=== PATIENT | female | born 1940 | race Caucasian/White ===

== ENCOUNTER 2018-03-04 08:06 | Observation (INO) | payer MEDICARE, BC ==
[~2018-03-04] VITALS: Ht 157.5 cm; Wt 71.6 kg
[~2018-03-04 08:06] MED LIST: ACET325T14 PO; ASPI-496 PO; CARV3.1212 PO; FLUO10TA PO; FURO20TA3 PO; LEVO75TA5 PO; LOSA50TA7 PO; MECL25TA4 PO; OMEP-110 PO; ROSU40TA PO; SPIR25TA PO; TRAZ-136 PO
[2018-03-04] MEDS ORDERED: SODIUM CHLORIDE 0.9% 1,000 ML IV SCH (08:29)
[2018-03-04] MEDS ORDERED: CEFAZOLIN PMX 1GM/50ML 50 ML IVPB ONE (08:30)
[2018-03-04 08:41] VITALS: BP 156/71
[2018-03-04] MEDS ORDERED: PLEASE ENTER HEIGHT AND WEIGHT MC SCH (09:00)
[2018-03-04] MEDS ORDERED: PROPOFOL 50 ML ONE (10:30)
[2018-03-04] MEDS ORDERED: FENTANYL PF 100 MCG/2ML ONE (10:30)
[2018-03-04] MEDS ORDERED: LIDOCAINE 1%, 50ML ONE (10:48)
[2018-03-04] MEDS ORDERED: CEFAZOLIN 1,000 MG ONE ×2 (10:53→10:58)
[2018-03-04] MEDS ORDERED: DEXAMETHASONE 4 MG/ML, 1ML ONE (10:58)
[2018-03-04] MEDS ORDERED: ONDANSETRON 2MG/ML, 2ML ONE (10:58)
[2018-03-04] MEDS ORDERED: PROPOFOL 10 MG/ML, 20ML ONE (10:58)
[2018-03-04] MEDS ORDERED: ZOLPIDEM 5MG TABLET PO PRN (12:30)
[2018-03-04] MEDS ORDERED: ACETAMINOPHEN 325 MG TABLET PO PRN ×3 (12:30→13:00)
[2018-03-04] MEDS ORDERED: TRAZODONE 50MG TABLET PO PRN (12:30)
[2018-03-04] MEDS ORDERED: MECLIZINE CHEWABLE 25 MG TAB PO PRN (12:30)
[2018-03-04] MEDS ORDERED: [UNRECOGNIZED DRUG - REMARK] MC PRN (12:30)
[2018-03-04] MEDS ORDERED: DIPHENHYDRAMINE 50 MG/ML, 1ML IVPush PRN (13:00)
[2018-03-04] MEDS ORDERED: PROMETHAZINE 12.5 MG SUPP PR PRN (13:00)
[2018-03-04] MEDS ORDERED: MORPHINE SULFATE 4 MG/ML, 1ML IVPush PRN (13:00)
[2018-03-04] MEDS ORDERED: MIDAZOLAM 1 MG/ML, 2ML IV PRN (13:00)
[2018-03-04] MEDS ORDERED: PROMETHAZINE 25 MG/ML, 1ML IV PRN (13:00)
[2018-03-04] MEDS ORDERED: FENTANYL PF 100 MCG/2ML IV PRN (13:00)
[2018-03-04] MEDS ORDERED: METOPROLOL 1 MG/ML, 5ML IV PRN (13:00)
[2018-03-04] MEDS ORDERED: EPHEDRINE 50 MG/ML, 1ML IM PRN (13:00)
[2018-03-04] MEDS ORDERED: OXYcodone 5 MG/5 ML ORAL.SOL UDC PO PRN (13:00)
[2018-03-04] MEDS ORDERED: ONDANSETRON ODT 8 MG PO PRN (13:00)
[2018-03-04] MEDS ORDERED: EPHEDRINE 50 MG/ML, 1ML IVPush PRN (13:00)
[2018-03-04] MEDS ORDERED: PROMETHAZINE 25 MG SUPP PR PRN (13:00)
[2018-03-04] MEDS ORDERED: OXYcodone 5 MG/5 ML ORAL.SOL UDC ONE (13:10)
[2018-03-04] MEDS ORDERED: ACETAMINOPHEN 650 MG/20.3 ML UDC ONE (13:10)
[2018-03-04 14:05] VITALS: BP 107/68
[2018-03-04 20:05] VITALS: BP 112/65
[2018-03-04] MEDS ORDERED: (Rosuvastatin Calcium** (Crestor**) 40 MG) PO SCH (21:00)
[2018-03-04] MEDS: SODIUM CHLORIDE FLUSH 10ML SYR IVF SCH (21:00)
[2018-03-04] MEDS: CEFAZOLIN PMX 1GM/50ML 50 ML IVPB SCH (21:00)
[2018-03-04] MEDS: CARVEDILOL 6.25 MG TABLET PO SCH (21:01)
[2018-03-05 02:00] VITALS: BP 108/60
[2018-03-05] MEDS: CEFAZOLIN PMX 1GM/50ML 50 ML IVPB SCH (03:25)
[2018-03-05 07:52] VITALS: BP 133/66
[2018-03-05] MEDS: CARVEDILOL 6.25 MG TABLET PO SCH (08:45)
[2018-03-05] MEDS ORDERED: ASPIRIN 81 MG TABLET CHEW PO SCH (09:00)
[2018-03-05] MEDS ORDERED: OMEPRAZOLE 20 MG CAPSULE.DR PO SCH (09:00)
[2018-03-05] MEDS: SODIUM CHLORIDE FLUSH 10ML SYR IVF SCH (09:00)
[2018-03-05] MEDS ORDERED: FLUOXETINE HCL 20 MG CAPSULE PO SCH (09:00)
[2018-03-05] MEDS ORDERED: LEVOTHYROXINE 75 MCG TABLET PO SCH (09:00)
[2018-03-05] MEDS ORDERED: LOSARTAN 50MG TABLET PO SCH (09:00)
[2018-03-05] MEDS ORDERED: SPIRONOLACTONE 25 MG TABLET PO SCH (09:00)
== END 2018-03-05 12:15 | disposition home or self-care (01) ==
LOC: CACL 08:06 → ORIP 12:23 → 5SO 13:42 → DCLOUNGE 03-05 11:10
PROVIDERS: ADMIT Internal Medicine Cardiovascular Disease; ATTEND Internal Medicine Cardiovascular Disease
DX: T82.128A Displacement of other cardiac electronic device, initial encounter (principal); I42.9 Cardiomyopathy, unspecified; R94.31 Abnormal electrocardiogram [ECG] [EKG]; R53.83 Other fatigue; E03.9 Hypothyroidism, unspecified; Z95.810 Presence of automatic (implantable) cardiac defibrillator; Z79.899 Other long term (current) drug therapy
CPT/HCPCS: 33224; 33244; 71045; 96365; 96366; C1769; C1887; C1894; C1900; G0378; J0690; J1100; J2405; J2704; J3010; J3490; Q9967

== ENCOUNTER 2018-06-01 09:31 | Observation (INO) | payer MEDICARE, BC ==
[~2018-06-01] VITALS: Ht 157.5 cm; Wt 66.1 kg
[~2018-06-01 09:31] MED LIST changes: -TRAZ-136 PO; +TRAZ50TA66 PO
[2018-06-01] MEDS ORDERED: SODIUM CHLORIDE 0.9% 1,000 ML IV SCH (09:41)
[2018-06-01 09:54] VITALS: BP 135/65
[2018-06-01 10:09] LABS: BASOPHILS # (AUTO) 0.07 x10^3/uL (0-0.1); BASOPHILS % (AUTO) 1 % (0-1); EOSINOPHILS # (AUTO) 0.31 x10^3/uL (0-0.4); EOSINOPHILS % (AUTO) 4 % (1-7); LYMPHOCYTES # (AUTO) 2.12 x10^3/uL (1-3.4); LYMPHOCYTES % (AUTO) 27 % (22-44); MD NO; MEAN CORPUSCULAR HEMOGLOBIN 30.7 pg (27.0-34.8); MEAN CORPUSCULAR HGB CONC 33.6 g/dL (32.4-35.8); MEAN CORPUSCULAR VOLUME 91.4 fL (80-100); MEAN PLATELET VOLUME 9.8 fL (7.4-10.4); MONOCYTES # (AUTO) 0.48 x10^3/uL (0.2-0.8); MONOCYTES % (AUTO) 6 % (2-9); NEUTROPHILS # (AUTO) 4.95 x10^3/uL (1.8-6.8); NEUTROPHILS % (AUTO) 62 % (42-75); PLATELET COUNT 252 x10^3/uL (130-400); RED BLOOD COUNT 4.89 x10^6/uL (3.82-5.3); RED CELL DISTRIBUTION WIDTH 13.8 % (9.6-15.2)
[2018-06-01 10:14] LABS: ANION GAP 5 mmol/L (5-15); CALCIUM 9.4 mg/dL (8.5-10.1); CHLORIDE 110 mmol/L (98-107); CREATININE 1.11 mg/dL (0.55-1.02)
[2018-06-01 10:15] LABS: ALANINE AMINOTRANSFERASE 23 U/L (12-78); ALBUMIN 4.3 g/dL (3.4-5.0)
[2018-06-01 10:17] LABS: ALKALINE PHOSPHATASE 87 U/L (45-117); BILIRUBIN,TOTAL 0.6 mg/dL (0.2-1.0); TOTAL PROTEIN 7.6 g/dL (6.4-8.2)
[2018-06-01] MEDS ORDERED: FENTANYL PF 250 MCG/5ML ONE (11:46)
[2018-06-01] MEDS ORDERED: PROPOFOL 50 ML ONE (11:47)
[2018-06-01] MEDS ORDERED: LIDOCAINE 1%, 20ML ONE (11:51)
[2018-06-01] MEDS ORDERED: CEFAZOLIN 1,000 MG ONE (11:51)
[2018-06-01] MEDS ORDERED: DEXAMETHASONE 4 MG/ML, 1ML ONE (12:00)
[2018-06-01] MEDS ORDERED: ROCURONIUM 10 MG/ML,10ML ONE (12:00)
[2018-06-01] MEDS ORDERED: ONDANSETRON 2MG/ML, 2ML ONE (12:00)
[2018-06-01] MEDS ORDERED: SUCCINYLCHOLINE 20 MG/ML, 10ML ONE (12:00)
[2018-06-01] MEDS ORDERED: ONDANSETRON ODT 8 MG PO PRN (15:30)
[2018-06-01] MEDS ORDERED: OXYcodone 5 MG/5 ML ORAL.SOL UDC PO PRN (15:30)
[2018-06-01] MEDS ORDERED: PROMETHAZINE 25 MG/ML, 1ML IV PRN (15:30)
[2018-06-01] MEDS ORDERED: HOLD MEDICATION MC PRN (15:30)
[2018-06-01] MEDS ORDERED: PROMETHAZINE 25 MG SUPP PR PRN (15:30)
[2018-06-01] MEDS ORDERED: FENTANYL PF 100 MCG/2ML IV PRN (15:30)
[2018-06-01] MEDS ORDERED: ONDANSETRON 2MG/ML, 2ML IV PRN (15:30)
[2018-06-01] MEDS ORDERED: ACETAMINOPHEN 325 MG TABLET PO PRN (15:30)
[2018-06-01] MEDS ORDERED: MIDAZOLAM 1 MG/ML, 2ML IV PRN (15:30)
[2018-06-01] MEDS ORDERED: CEFAZOLIN PMX 1GM/50ML 50 ML IVPB SCH (15:30)
[2018-06-01] MEDS ORDERED: PROMETHAZINE 12.5 MG SUPP PR PRN (15:30)
[2018-06-01] MEDS ORDERED: MORPHINE SULFATE 4 MG/ML, 1ML IVPush PRN (15:30)
[2018-06-01] MEDS ORDERED: EPHEDRINE 50 MG/ML, 1ML IM PRN (15:30)
[2018-06-01] MEDS: HYDROcodone/APAP 5/325 TABLET PO PRN ×3 (16:35→21:28)
[2018-06-01] MEDS ORDERED: TRAZODONE 50MG TABLET PO PRN (17:30)
[2018-06-01] MEDS ORDERED: MECLIZINE 12.5 MG TABLET PO PRN (17:30)
[2018-06-01] MEDS: CARVEDILOL 6.25 MG TABLET PO SCH (18:35)
[2018-06-01] MEDS: CEFAZOLIN 1,000 MG in SODIUM CHLORIDE 0.9% 50 ML IVPB SCH (19:28)
[2018-06-01 19:35] VITALS: BP 96/58
[2018-06-01] MEDS ORDERED: ATORVASTATIN 80 MG TABLET PO SCH (21:00)
[2018-06-02 02:33] VITALS: BP 98/65
[2018-06-02] MEDS: HYDROcodone/APAP 5/325 TABLET PO PRN ×2 (02:43→08:38)
[2018-06-02] MEDS: CEFAZOLIN 1,000 MG in SODIUM CHLORIDE 0.9% 50 ML IVPB SCH (02:43)
[2018-06-02] MEDS ORDERED: LEVOTHYROXINE 75 MCG TABLET PO SCH ×2 (06:00→09:00)
[2018-06-02] MEDS ORDERED: ASPIRIN 81 MG TABLET EC PO SCH (06:00)
[2018-06-02] MEDS: CARVEDILOL 6.25 MG TABLET PO SCH (06:09)
[2018-06-02 08:40] VITALS: BP 115/72
[2018-06-02] MEDS ORDERED: HYDR-3240 PO (08:59)
[2018-06-02] MEDS ORDERED: SPIRONOLACTONE 25 MG TABLET PO SCH (09:00)
[2018-06-02] MEDS ORDERED: OMEPRAZOLE 20 MG CAPSULE.DR PO SCH (09:00)
[2018-06-02] MEDS ORDERED: LOSARTAN 50MG TABLET PO SCH (09:00)
[2018-06-02] MEDS ORDERED: FLUOXETINE HCL 20 MG CAPSULE PO SCH (09:00)
== END 2018-06-02 11:30 | disposition home or self-care (01) ==
LOC: CACL 09:31 → ORIP 15:15 → CACL 15:15 → 5SO 16:05 → DCLOUNGE 06-02 11:19
PROVIDERS: ADMIT Internal Medicine Cardiovascular Disease; ATTEND Internal Medicine Cardiovascular Disease
DX: T82.198A Other mechanical complication of other cardiac electronic device, initial encounter (principal); I49.5 Sick sinus syndrome; I42.9 Cardiomyopathy, unspecified; E03.9 Hypothyroidism, unspecified; L57.4 Cutis laxa senilis; R94.31 Abnormal electrocardiogram [ECG] [EKG]; R53.83 Other fatigue; Y99.8 Other external cause status; Z95.810 Presence of automatic (implantable) cardiac defibrillator
CPT/HCPCS: 33217; 33224; 33244; 36415; 71045; 71046; 80053; 85025; 96365; 96366; C1769; C1779; C1887; C1892; C1895; C1900; G0378; J0330; J0690; J1100; J2405; J2704; J3010; J3490; Q9967; 36005

== ENCOUNTER 2018-10-15 06:20 | Observation (INO) | payer MEDICARE, BC ==
[~2018-10-15] VITALS: Ht 157.5 cm; Wt 71.0 kg
[~2018-10-15 06:20] MED LIST changes: +HYDR-3240 PO; +LOSA50TA14 PO; -LOSA50TA7 PO
[2018-10-15] MEDS ORDERED: SODIUM CHLORIDE 0.9% 1,000 ML IV SCH (06:41)
[2018-10-15 06:56] VITALS: BP 136/65
[2018-10-15] MEDS ORDERED: SPIR25TA5 PO (07:23)
[2018-10-15] MEDS ORDERED: CEFAZOLIN 1,000 MG ONE ×2 (07:56→14:32)
[2018-10-15] MEDS ORDERED: PROPOFOL 50 ML ONE ×3 (08:12→10:33)
[2018-10-15] MEDS ORDERED: FENTANYL PF 250 MCG/5ML ONE (08:12)
[2018-10-15] MEDS ORDERED: MIDAZOLAM 1 MG/ML, 2ML ONE (08:44)
[2018-10-15] MEDS ORDERED: MORPHINE SULFATE 4 MG/ML, 1ML IVPush PRN (11:30)
[2018-10-15] MEDS ORDERED: DIAZEPAM 5 MG/ML, 2ML IVPush PRN (11:30)
[2018-10-15] MEDS ORDERED: FENTANYL PF 100 MCG/2ML IV PRN (11:30)
[2018-10-15] MEDS ORDERED: EPHEDRINE 50 MG/ML, 1ML IM PRN (11:30)
[2018-10-15] MEDS ORDERED: ACETAMINOPHEN 325 MG TABLET PO PRN (11:30)
[2018-10-15] MEDS ORDERED: ONDANSETRON 2MG/ML, 2ML IV PRN (11:30)
[2018-10-15] MEDS ORDERED: DIPHENHYDRAMINE 50 MG/ML, 1ML IVPush PRN (11:30)
[2018-10-15] MEDS ORDERED: ONDANSETRON ODT 8 MG PO PRN (11:30)
[2018-10-15] MEDS ORDERED: OXYcodone 5 MG/5 ML ORAL.SOL UDC PO PRN (11:30)
[2018-10-15] MEDS ORDERED: MIDAZOLAM 1 MG/ML, 2ML IV PRN (11:30)
[2018-10-15] MEDS ORDERED: MECLIZINE HCL 25 MG TABLET PO PRN (12:00)
[2018-10-15] MEDS ORDERED: TRAZODONE 50MG TABLET PO PRN (12:00)
[2018-10-15] MEDS ORDERED: OXYcodone 5 MG/5 ML ORAL.SOL UDC ONE (12:03)
[2018-10-15] MEDS ORDERED: FENTANYL PF 100 MCG/2ML ONE (12:04)
[2018-10-15 13:44] VITALS: BP 93/53
[2018-10-15] MEDS ORDERED: ONDANSETRON 2MG/ML, 2ML ONE (14:32)
[2018-10-15 14:33] VITALS: BP 106/52
[2018-10-15] MEDS: CETIRIZINE 10 MG TABLET PO SCH (16:17)
[2018-10-15] MEDS: CARVEDILOL 6.25 MG TABLET PO SCH (20:41)
[2018-10-15 20:53] VITALS: BP 120/69
[2018-10-15] MEDS ORDERED: ATORVASTATIN 80 MG TABLET PO SCH (21:00)
[2018-10-15] MEDS ORDERED: OXYcodone IR 5MG TABLET PO PRN (21:30)
[2018-10-16 01:30] VITALS: BP 129/65
[2018-10-16 07:54] VITALS: BP 110/66
[2018-10-16] MEDS ORDERED: OMEPRAZOLE 20 MG CAPSULE.DR PO SCH (09:00)
[2018-10-16] MEDS ORDERED: FLUOXETINE HCL 20 MG CAPSULE PO SCH (09:00)
[2018-10-16] MEDS ORDERED: LEVOTHYROXINE 75 MCG TABLET PO SCH (09:00)
[2018-10-16] MEDS ORDERED: LOSARTAN 25MG TABLET PO SCH (09:00)
[2018-10-16] MEDS ORDERED: SPIRONOLACTONE 25 MG TABLET PO SCH (09:00)
[2018-10-16] MEDS ORDERED: ASPIRIN 81 MG TABLET EC PO SCH (09:00)
[2018-10-16 09:30] VITALS: BP 104/61
[2018-10-16] MEDS: CETIRIZINE 10 MG TABLET PO SCH (09:35)
[2018-10-16] MEDS: CARVEDILOL 6.25 MG TABLET PO SCH (09:36)
[2018-10-16] MEDS ORDERED: ACETAMINOPHEN 325 MG TABLET PO PRN (12:30)
[2018-10-16] MEDS ORDERED: ACETAMINOPHEN 325 MG TABLET ONE (12:30)
[2018-10-16] MEDS ORDERED: ACETAMINOPHEN 325 MG TABLET PO ONE (13:00)
== END 2018-10-16 13:37 | disposition home or self-care (01) ==
LOC: CACL 06:20 → 5SO 08:52 → CACL 11:53 → DCLOUNGE 10-16 13:28
PROVIDERS: ADMIT Internal Medicine Cardiovascular Disease; ATTEND Internal Medicine Cardiovascular Disease
DX: T82.198A Other mechanical complication of other cardiac electronic device, initial encounter (principal); I42.9 Cardiomyopathy, unspecified; R94.31 Abnormal electrocardiogram [ECG] [EKG]; R53.83 Other fatigue; E03.9 Hypothyroidism, unspecified; I49.5 Sick sinus syndrome; Z95.810 Presence of automatic (implantable) cardiac defibrillator
CPT/HCPCS: 33224; 33244; 36005; 71046; 93005; C1769; C1887; C1894; C1900; G0378; J0690; J2250; J2405; J2704; J3010; Q9967

== ENCOUNTER 2018-12-21 05:28 | Inpatient (IN) | payer MEDICARE, BC ==
[2018-12-20 15:00] LABS: MICROSCOPIC NOT IND
[2018-12-20 15:06] LABS: BASOPHILS # (AUTO) 0.03 x10^3/uL (0-0.1); BASOPHILS % (AUTO) 0 % (0-1); EOSINOPHILS # (AUTO) 0.22 x10^3/uL (0-0.4); EOSINOPHILS % (AUTO) 3 % (1-7); LYMPHOCYTES # (AUTO) 2.69 x10^3/uL (1-3.4); LYMPHOCYTES % (AUTO) 30 % (22-44); MD NO; MEAN CORPUSCULAR HEMOGLOBIN 30.6 pg (27.0-34.8); MEAN CORPUSCULAR HGB CONC 32.7 g/dL (32.4-35.8); MEAN CORPUSCULAR VOLUME 93.4 fL (80-100); MEAN PLATELET VOLUME 9.9 fL (7.4-10.4); MONOCYTES # (AUTO) 0.66 x10^3/uL (0.2-0.8); MONOCYTES % (AUTO) 7 % (2-9); NEUTROPHILS # (AUTO) 5.32 x10^3/uL (1.8-6.8); NEUTROPHILS % (AUTO) 60 % (42-75); PLATELET COUNT 247 x10^3/uL (130-400); RED BLOOD COUNT 4.64 x10^6/uL (3.82-5.3); RED CELL DISTRIBUTION WIDTH 14.1 % (9.6-15.2)
[2018-12-20 15:16] LABS: ALANINE AMINOTRANSFERASE 19 U/L (12-78); ALBUMIN 4.1 g/dL (3.4-5.0); ANION GAP 5 mmol/L (5-15); CALCIUM 9.7 mg/dL (8.5-10.1); CHLORIDE 107 mmol/L (98-107); CREATININE 1.15 mg/dL (0.55-1.02)
[2018-12-20 15:18] LABS: INTERNATIONAL NORMALIZED RATIO 0.98 (0.93-1.1); PROTHROMBIN TIME 10.3 Seconds (9.6-11.5)
[2018-12-20 15:19] LABS: ALKALINE PHOSPHATASE 74 U/L (45-117); BILIRUBIN,TOTAL 0.5 mg/dL (0.2-1.0)
[2018-12-20 15:32] LABS: HEMOGLOBIN A1C 5.7 % (4.2-6.3)
[~2018-12-21] VITALS: Ht 167.6 cm; Wt 72.5 kg
[~2018-12-21 05:28] MED LIST changes: +CO Q10 PO; +HYDR-3237 PO; +SPIR25TA5 PO
[2018-12-21 05:39] VITALS: BP_SYST 137; BP_SYST 138; BP_DIAS 72; BP_DIAS 74
[2018-12-21] MEDS ORDERED: DO NOT GIVE MC SCH (06:00)
[2018-12-21] MEDS ORDERED: CHLORHEXIDINE 15 ML UDC MM SCH (06:00)
[2018-12-21] MEDS ORDERED: INSULIN LISPRO 100 UNITS/ML, PEN SQ-INSULIN SCH (06:00)
[2018-12-21 06:50] VITALS: BP 128/63
[2018-12-21] MEDS ORDERED: FENTANYL PF 250 MCG/5ML ONE (07:11)
[2018-12-21] MEDS ORDERED: MIDAZOLAM 10MG/2 ML ONE (07:11)
[2018-12-21] MEDS ORDERED: CEFUROXIME 1.5 GM in SODIUM CHLORIDE 0.9% 50 ML IVPB PRN (07:30)
[2018-12-21] MEDS ORDERED: VANCOMYCIN 1,000 MG in SODIUM CHLORIDE 0.9% 250 ML IV PRN (07:30)
[2018-12-21] MEDS ORDERED: ONDANSETRON 2MG/ML, 2ML ONE (07:36)
[2018-12-21] MEDS: DOCUSATE 100 MG CAPSULE PO SCH ×2 (09:00→21:00)
[2018-12-21] MEDS ORDERED: DEXAMETHASONE 4 MG/ML, 1ML ONE (10:07)
[2018-12-21] MEDS ORDERED: SUCCINYLCHOLINE 20 MG/ML, 10ML ONE (10:07)
[2018-12-21] MEDS ORDERED: ROCURONIUM 10MG/ML,5ML ONE (10:07)
[2018-12-21] MEDS ORDERED: PROPOFOL 50 ML ONE (10:33)
[2018-12-21] MEDS ORDERED: VANCOMYCIN 1,000 MG in SODIUM CHLORIDE 0.9% 250 ML IVPB SCH (10:56)
[2018-12-21] MEDS ORDERED: DEXMEDETOMIDINE 200 MCG in SODIUM CHLORIDE 0.9% 48 ML IV PRN (10:56)
[2018-12-21] MEDS ORDERED: SODIUM CHLORIDE 0.9% 1,000 ML IV PRN (10:56)
[2018-12-21] MEDS ORDERED: PROCHLORPERAZINE 5 MG/ML, 2ML IVPush PRN (11:00)
[2018-12-21] MEDS ORDERED: DEXTROSE 4 GM TAB.CHEW PO PRN (11:00)
[2018-12-21] MEDS ORDERED: GLUCAGON 1 MG IM PRN (11:00)
[2018-12-21] MEDS ORDERED: BISACODYL 10 MG SUPP PR PRN (11:00)
[2018-12-21] MEDS ORDERED: morphine SULFATE 10 MG/ML, 1ML IVPush PRN (11:00)
[2018-12-21] MEDS ORDERED: ACETAMINOPHEN 650 MG SUPP PR PRN (11:00)
[2018-12-21] MEDS ORDERED: MIDAZOLAM 1 MG/ML, 5ML IVPush PRN (11:00)
[2018-12-21] MEDS ORDERED: SODIUM BICARB 8.4%, 50ML SYRINGE IV PRN (11:00)
[2018-12-21] MEDS ORDERED: DEXTROSE 50%, 50ML SYRINGE IVPush PRN (11:00)
[2018-12-21] MEDS ORDERED: MECLIZINE 25 MG TABLET PO PRN (11:30)
[2018-12-21 12:17] LABS: GLUCOSE BY BLOOD GAS ANALYZER 121 mg/dL (70-110); HEMOGLOBIN BY BLOOD GAS ANALYZ 11.9 g/dL (14.0-18.0); POTASSIUM BY BLOOD GAS ANALYZR 3.7 mmol/L (3.6-5.5)
[2018-12-21] MEDS: SODIUM CHLORIDE FLUSH 10ML SYR IVF SCH ×2 (13:27→20:59)
[2018-12-21] MEDS ORDERED: MAGNESIUM SULFATE PMX 2GM/50ML 50 ML IV ONE (14:00)
[2018-12-21] MEDS: hydrALAzine 20 MG/ML, 1ML IV PRN ×2 (14:07→21:05)
[2018-12-21] MEDS: CEFUROXIME 1.5 GM in SODIUM CHLORIDE 0.9% 50 ML IVPB SCH (18:28)
[2018-12-21] MEDS: VANCOMYCIN PMX 1GM/200ML 200 ML IV SCH (18:29)
[2018-12-21] MEDS: HYDROcodone/APAP 5/325 TABLET PO PRN (18:58)
[2018-12-21] MEDS: TRAZODONE 150MG TABLET PO SCH (21:00)
[2018-12-21] MEDS ORDERED: SODIUM CHLORIDE FLUSH 10ML SYR IVF SCH (21:00)
[2018-12-21] MEDS: OXYcodone IR 5MG TABLET PO PRN (21:00)
[2018-12-21] MEDS: ATORVASTATIN 80 MG TABLET PO SCH (21:00)
[2018-12-21] MEDS: CARVEDILOL 6.25 MG TABLET PO SCH (21:01)
[2018-12-21] MEDS: ONDANSETRON 2MG/ML, 2ML IVPush PRN (21:23)
[2018-12-22 04:48] LABS: INTERNATIONAL NORMALIZED RATIO 0.97 (0.93-1.1); PROTHROMBIN TIME 10.2 Seconds (9.6-11.5)
[2018-12-22 04:52] LABS: ALBUMIN 3.3 g/dL (3.4-5.0); ANION GAP 8 mmol/L (5-15); CALCIUM 8.7 mg/dL (8.5-10.1); CHLORIDE 110 mmol/L (98-107); CREATININE 0.68 mg/dL (0.55-1.02)
[2018-12-22 05:00] VITALS: BP 137/63
[2018-12-22 05:02] LABS: MEAN CORPUSCULAR HEMOGLOBIN 30.7 pg (27.0-34.8); MEAN CORPUSCULAR HGB CONC 32.9 g/dL (32.4-35.8); MEAN CORPUSCULAR VOLUME 93.3 fL (80-100); MEAN PLATELET VOLUME 10.4 fL (7.4-10.4); PLATELET COUNT 185 x10^3/uL (130-400); RED BLOOD COUNT 4.29 x10^6/uL (3.82-5.3); RED CELL DISTRIBUTION WIDTH 14.1 % (9.6-15.2)
[2018-12-22] MEDS: OXYcodone IR 5MG TABLET PO PRN (05:48)
[2018-12-22 05:53] LABS: BASOPHILS # (AUTO) 0.01 x10^3/uL (0-0.1); BASOPHILS % (AUTO) 0 % (0-1); EOSINOPHILS # (AUTO) 0.01 x10^3/uL (0-0.4); EOSINOPHILS % (AUTO) 0 % (1-7); LYMPHOCYTES # (AUTO) 0.96 x10^3/uL (1-3.4); LYMPHOCYTES % (AUTO) 7 % (22-44); MD SCAN; MONOCYTES # (AUTO) 0.81 x10^3/uL (0.2-0.8); MONOCYTES % (AUTO) 6 % (2-9); NEUTROPHILS # (AUTO) 12.87 x10^3/uL (1.8-6.8); NEUTROPHILS % (AUTO) 88 % (42-75)
[2018-12-22] MEDS: VANCOMYCIN PMX 1GM/200ML 200 ML IV SCH (06:03)
[2018-12-22] MEDS: ONDANSETRON 2MG/ML, 2ML IVPush PRN (06:55)
[2018-12-22] MEDS: SODIUM CHLORIDE FLUSH 10ML SYR IVF SCH ×2 (09:00→20:49)
[2018-12-22] MEDS: OMEPRAZOLE 20 MG CAPSULE.DR PO SCH (09:00)
[2018-12-22] MEDS ORDERED: KETOROLAC 30 MG/1 ML IM SCH (09:30)
[2018-12-22] MEDS: CEFUROXIME 1.5 GM in SODIUM CHLORIDE 0.9% 50 ML IVPB SCH (09:58)
[2018-12-22] MEDS: FLUOXETINE HCL 20 MG CAPSULE PO SCH (10:10)
[2018-12-22] MEDS: LEVOTHYROXINE 75 MCG TABLET PO SCH (10:10)
[2018-12-22] MEDS ORDERED: SODIUM CHLORIDE 0.9% 500 ML IV SCH (10:30)
[2018-12-22] MEDS: DOCUSATE 100 MG CAPSULE PO SCH ×2 (13:00→20:48)
[2018-12-22] MEDS: CARVEDILOL 6.25 MG TABLET PO SCH ×2 (13:00→20:48)
[2018-12-22] MEDS: SPIRONOLACTONE 25 MG TABLET PO SCH (13:41)
[2018-12-22] MEDS: ASPIRIN 81 MG TABLET EC PO SCH (13:41)
[2018-12-22] MEDS: FUROSEMIDE 20 MG TABLET PO SCH (13:41)
[2018-12-22] MEDS: KETOROLAC 30 MG/1 ML IV PRN (15:53)
[2018-12-22] MEDS ORDERED: morphine SULFATE 10 MG/ML, 1ML IVPush PRN (18:00)
[2018-12-22 19:10] VITALS: BP 109/66
[2018-12-22] MEDS: TRAZODONE 150MG TABLET PO SCH (20:47)
[2018-12-22] MEDS: LOSARTAN 50MG TABLET PO SCH (20:48)
[2018-12-22] MEDS: ATORVASTATIN 80 MG TABLET PO SCH (20:48)
[2018-12-23 01:02] VITALS: BP 126/66
[2018-12-23 05:27] LABS: INTERNATIONAL NORMALIZED RATIO 0.92 (0.93-1.1); PROTHROMBIN TIME 9.7 Seconds (9.6-11.5)
[2018-12-23 05:29] LABS: ALANINE AMINOTRANSFERASE 15 U/L (12-78); ALBUMIN 2.8 g/dL (3.4-5.0); ANION GAP 6 mmol/L (5-15); CALCIUM 8.4 mg/dL (8.5-10.1); CHLORIDE 109 mmol/L (98-107); CREATININE 0.93 mg/dL (0.55-1.02)
[2018-12-23 05:32] LABS: ALKALINE PHOSPHATASE 61 U/L (45-117); BILIRUBIN,TOTAL 0.6 mg/dL (0.2-1.0); TOTAL PROTEIN 5.7 g/dL (6.4-8.2)
[2018-12-23 05:48] LABS: BASOPHILS # (AUTO) 0.04 x10^3/uL (0-0.1); BASOPHILS % (AUTO) 0 % (0-1); EOSINOPHILS # (AUTO) 0.46 x10^3/uL (0-0.4); EOSINOPHILS % (AUTO) 4 % (1-7); LYMPHOCYTES # (AUTO) 1.64 x10^3/uL (1-3.4); LYMPHOCYTES % (AUTO) 13 % (22-44); MD NO; MEAN CORPUSCULAR HEMOGLOBIN 29.6 pg (27.0-34.8); MEAN CORPUSCULAR HGB CONC 32.1 g/dL (32.4-35.8); MEAN CORPUSCULAR VOLUME 92.2 fL (80-100); MONOCYTES # (AUTO) 0.81 x10^3/uL (0.2-0.8); MONOCYTES % (AUTO) 6 % (2-9); NEUTROPHILS # (AUTO) 10.05 x10^3/uL (1.8-6.8); NEUTROPHILS % (AUTO) 77 % (42-75); PLATELET COUNT 155 x10^3/uL (130-400); RED BLOOD COUNT 3.86 x10^6/uL (3.82-5.3); RED CELL DISTRIBUTION WIDTH 14.3 % (9.6-15.2)
[2018-12-23] MEDS: LOSARTAN 50MG TABLET PO SCH (08:26)
[2018-12-23] MEDS: SODIUM CHLORIDE FLUSH 10ML SYR IVF SCH ×2 (08:26→21:18)
[2018-12-23] MEDS: FUROSEMIDE 20 MG TABLET PO SCH (08:27)
[2018-12-23] MEDS: LEVOTHYROXINE 75 MCG TABLET PO SCH (08:27)
[2018-12-23] MEDS: ASPIRIN 81 MG TABLET EC PO SCH (08:27)
[2018-12-23] MEDS: ENOXAPARIN 40 MG/0.4 ML SQ SCH (08:27)
[2018-12-23] MEDS: DOCUSATE 100 MG CAPSULE PO SCH ×2 (08:28→21:19)
[2018-12-23] MEDS: SPIRONOLACTONE 25 MG TABLET PO SCH (08:28)
[2018-12-23] MEDS: CARVEDILOL 6.25 MG TABLET PO SCH ×2 (08:28→21:19)
[2018-12-23] MEDS ORDERED: POTASSIUM PHOSPHATE 44 MEQ in SODIUM CHLORIDE 0.9% 500 ML IV ONE (08:30)
[2018-12-23] MEDS: FLUOXETINE HCL 20 MG CAPSULE PO SCH (08:31)
[2018-12-23] MEDS: NEUTRA PHOS K 250 MG TABLET PO SCH ×3 (08:31→21:19)
[2018-12-23 08:40] VITALS: BP 126/73
[2018-12-23] MEDS: KETOROLAC 30 MG/1 ML IV PRN ×2 (08:40→17:03)
[2018-12-23] MEDS: ACETAMINOPHEN 325 MG TABLET PO PRN (12:21)
[2018-12-23 13:00] VITALS: BP 89/55
[2018-12-23 14:45] VITALS: BP 94/58
[2018-12-23 19:13] VITALS: BP 102/59
[2018-12-23] MEDS: TRAZODONE 150MG TABLET PO SCH ×2 (21:19→21:57)
[2018-12-23] MEDS: ATORVASTATIN 80 MG TABLET PO SCH (21:19)
[2018-12-23] MEDS: HYDROcodone/APAP 5/325 TABLET PO PRN (21:29)
[2018-12-24 02:27] VITALS: BP 110/60
[2018-12-24 04:47] LABS: BASOPHILS # (AUTO) 0.03 x10^3/uL (0-0.1); BASOPHILS % (AUTO) 0 % (0-1); EOSINOPHILS # (AUTO) 0.47 x10^3/uL (0-0.4); EOSINOPHILS % (AUTO) 4 % (1-7); LYMPHOCYTES # (AUTO) 1.43 x10^3/uL (1-3.4); LYMPHOCYTES % (AUTO) 11 % (22-44); MD NO; MEAN CORPUSCULAR HEMOGLOBIN 30.8 pg (27.0-34.8); MEAN CORPUSCULAR HGB CONC 33.2 g/dL (32.4-35.8); MONOCYTES # (AUTO) 1.01 x10^3/uL (0.2-0.8); MONOCYTES % (AUTO) 7 % (2-9); NEUTROPHILS # (AUTO) 10.71 x10^3/uL (1.8-6.8); NEUTROPHILS % (AUTO) 79 % (42-75); PLATELET COUNT 170 x10^3/uL (130-400); RED BLOOD COUNT 3.51 x10^6/uL (3.82-5.3); RED CELL DISTRIBUTION WIDTH 14.3 % (9.6-15.2)
[2018-12-24 04:58] LABS: ALBUMIN 2.5 g/dL (3.4-5.0); ANION GAP 7 mmol/L (5-15); CALCIUM 8.4 mg/dL (8.5-10.1); CHLORIDE 109 mmol/L (98-107)
[2018-12-24 05:04] LABS: ALANINE AMINOTRANSFERASE 16 U/L (12-78); ALKALINE PHOSPHATASE 52 U/L (45-117); BILIRUBIN,TOTAL 0.7 mg/dL (0.2-1.0); CREATININE 0.73 mg/dL (0.55-1.02); TOTAL PROTEIN 5.5 g/dL (6.4-8.2)
[2018-12-24 07:34] VITALS: BP 115/46
[2018-12-24] MEDS: NEUTRA PHOS K 250 MG TABLET PO SCH ×3 (08:10→21:31)
[2018-12-24] MEDS: ASPIRIN 81 MG TABLET EC PO SCH (08:10)
[2018-12-24] MEDS: FLUOXETINE HCL 20 MG CAPSULE PO SCH (08:10)
[2018-12-24] MEDS: SODIUM CHLORIDE FLUSH 10ML SYR IVF SCH ×2 (08:10→21:31)
[2018-12-24] MEDS: DOCUSATE 100 MG CAPSULE PO SCH ×2 (08:10→21:00)
[2018-12-24] MEDS: OMEPRAZOLE 20 MG CAPSULE.DR PO SCH (08:10)
[2018-12-24] MEDS: LOSARTAN 50MG TABLET PO SCH (08:11)
[2018-12-24] MEDS: SPIRONOLACTONE 25 MG TABLET PO SCH (08:11)
[2018-12-24] MEDS: LEVOTHYROXINE 75 MCG TABLET PO SCH (08:11)
[2018-12-24] MEDS: FUROSEMIDE 20 MG TABLET PO SCH (08:11)
[2018-12-24] MEDS: CARVEDILOL 6.25 MG TABLET PO SCH ×2 (08:11→21:31)
[2018-12-24] MEDS: ENOXAPARIN 40 MG/0.4 ML SQ SCH (08:12)
[2018-12-24 09:08] LABS: MEAN CORPUSCULAR HEMOGLOBIN 29.6 pg (27.0-34.8); MEAN CORPUSCULAR HGB CONC 32.1 g/dL (32.4-35.8); MEAN CORPUSCULAR VOLUME 92.1 fL (80-100); MEAN PLATELET VOLUME 9.9 fL (7.4-10.4); PLATELET COUNT 183 x10^3/uL (130-400); RED BLOOD COUNT 3.72 x10^6/uL (3.82-5.3); RED CELL DISTRIBUTION WIDTH 14.3 % (9.6-15.2)
[2018-12-24 09:25] LABS: BASOPHILS # (AUTO) 0.02 x10^3/uL (0-0.1); BASOPHILS % (AUTO) 0 % (0-1); EOSINOPHILS # (AUTO) 0.52 x10^3/uL (0-0.4); EOSINOPHILS % (AUTO) 4 % (1-7); LYMPHOCYTES # (AUTO) 1.88 x10^3/uL (1-3.4); LYMPHOCYTES % (AUTO) 14 % (22-44); MD SCAN; MONOCYTES # (AUTO) 0.97 x10^3/uL (0.2-0.8); MONOCYTES % (AUTO) 7 % (2-9); NEUTROPHILS # (AUTO) 10.49 x10^3/uL (1.8-6.8); NEUTROPHILS % (AUTO) 76 % (42-75)
[2018-12-24 09:34] LABS: ANION GAP 6 mmol/L (5-15); CALCIUM 8.7 mg/dL (8.5-10.1); CHLORIDE 108 mmol/L (98-107)
[2018-12-24 09:35] LABS: CREATININE 0.85 mg/dL (0.55-1.02)
[2018-12-24] MEDS: GUAIFENESIN 200 MG TABLET PO SCH ×3 (11:20→21:31)
[2018-12-24] MEDS ORDERED: LOPERAMIDE 2 MG CAPSULE PO PRN (11:30)
[2018-12-24 13:52] VITALS: BP 113/69
[2018-12-24 19:28] VITALS: BP 125/80
[2018-12-24] MEDS: TRAZODONE 150MG TABLET PO SCH (21:31)
[2018-12-24] MEDS: ATORVASTATIN 80 MG TABLET PO SCH (21:31)
[2018-12-25 01:30] VITALS: BP 117/72
[2018-12-25 04:49] LABS: ANION GAP 8 mmol/L (5-15); CALCIUM 8.5 mg/dL (8.5-10.1); CHLORIDE 108 mmol/L (98-107); CREATININE 0.61 mg/dL (0.55-1.02)
[2018-12-25 04:57] LABS: BASOPHILS # (AUTO) 0.02 x10^3/uL (0-0.1); BASOPHILS % (AUTO) 0 % (0-1); EOSINOPHILS # (AUTO) 0.26 x10^3/uL (0-0.4); EOSINOPHILS % (AUTO) 2 % (1-7); LYMPHOCYTES # (AUTO) 1.07 x10^3/uL (1-3.4); LYMPHOCYTES % (AUTO) 10 % (22-44); MD NO; MEAN CORPUSCULAR HEMOGLOBIN 30.6 pg (27.0-34.8); MEAN CORPUSCULAR HGB CONC 32.9 g/dL (32.4-35.8); MEAN CORPUSCULAR VOLUME 93.2 fL (80-100); MEAN PLATELET VOLUME 9.9 fL (7.4-10.4); MONOCYTES % (AUTO) 9 % (2-9); NEUTROPHILS # (AUTO) 8.73 x10^3/uL (1.8-6.8); NEUTROPHILS % (AUTO) 79 % (42-75); PLATELET COUNT 200 x10^3/uL (130-400); RED BLOOD COUNT 3.51 x10^6/uL (3.82-5.3)
[2018-12-25] MEDS: GUAIFENESIN 200 MG TABLET PO SCH ×4 (05:06→20:05)
[2018-12-25 06:30] VITALS: BP 110/70
[2018-12-25 07:40] VITALS: BP 115/57
[2018-12-25] MEDS: SODIUM CHLORIDE FLUSH 10ML SYR IVF SCH ×2 (07:43→20:06)
[2018-12-25] MEDS: LOSARTAN 50MG TABLET PO SCH (07:44)
[2018-12-25] MEDS: FLUOXETINE HCL 20 MG CAPSULE PO SCH (07:45)
[2018-12-25] MEDS: ASPIRIN 81 MG TABLET EC PO SCH (07:45)
[2018-12-25] MEDS: SPIRONOLACTONE 25 MG TABLET PO SCH (07:46)
[2018-12-25] MEDS: FUROSEMIDE 20 MG TABLET PO SCH (07:46)
[2018-12-25] MEDS: CARVEDILOL 6.25 MG TABLET PO SCH ×2 (07:46→20:05)
[2018-12-25] MEDS: OMEPRAZOLE 20 MG CAPSULE.DR PO SCH (07:46)
[2018-12-25] MEDS: LEVOTHYROXINE 75 MCG TABLET PO SCH (07:47)
[2018-12-25] MEDS: KETOROLAC 30 MG/1 ML IV PRN ×2 (07:47→11:40)
[2018-12-25] MEDS: DOCUSATE 100 MG CAPSULE PO SCH ×2 (07:47→20:05)
[2018-12-25] MEDS: ENOXAPARIN 40 MG/0.4 ML SQ SCH (07:47)
[2018-12-25 14:45] VITALS: BP 98/54
[2018-12-25 19:12] VITALS: BP 105/55
[2018-12-25] MEDS: ATORVASTATIN 80 MG TABLET PO SCH (20:05)
[2018-12-25] MEDS: TRAZODONE 150MG TABLET PO SCH (20:05)
[2018-12-26 01:03] VITALS: BP 102/50
[2018-12-26] MEDS: GUAIFENESIN 200 MG TABLET PO SCH ×3 (05:11→14:46)
[2018-12-26] MEDS: LEVOTHYROXINE 75 MCG TABLET PO SCH (05:11)
[2018-12-26 05:34] LABS: BASOPHILS # (AUTO) 0.04 x10^3/uL (0-0.1); BASOPHILS % (AUTO) 0 % (0-1); EOSINOPHILS # (AUTO) 0.58 x10^3/uL (0-0.4); EOSINOPHILS % (AUTO) 6 % (1-7); LYMPHOCYTES # (AUTO) 1.65 x10^3/uL (1-3.4); LYMPHOCYTES % (AUTO) 17 % (22-44); MD NO; MEAN CORPUSCULAR HEMOGLOBIN 30.7 pg (27.0-34.8); MEAN CORPUSCULAR VOLUME 93.1 fL (80-100); MEAN PLATELET VOLUME 9.6 fL (7.4-10.4); MONOCYTES # (AUTO) 0.95 x10^3/uL (0.2-0.8); MONOCYTES % (AUTO) 10 % (2-9); NEUTROPHILS # (AUTO) 6.57 x10^3/uL (1.8-6.8); NEUTROPHILS % (AUTO) 67 % (42-75); PLATELET COUNT 203 x10^3/uL (130-400); RED BLOOD COUNT 3.22 x10^6/uL (3.82-5.3); RED CELL DISTRIBUTION WIDTH 14.4 % (9.6-15.2)
[2018-12-26] MEDS: KETOROLAC 30 MG/1 ML IV PRN (05:36)
[2018-12-26 05:42] LABS: ANION GAP 8 mmol/L (5-15); CHLORIDE 109 mmol/L (98-107)
[2018-12-26 05:44] LABS: CREATININE 0.72 mg/dL (0.55-1.02)
[2018-12-26 07:14] VITALS: BP 101/66
[2018-12-26] MEDS: ASPIRIN 81 MG TABLET EC PO SCH (08:07)
[2018-12-26] MEDS: FUROSEMIDE 20 MG TABLET PO SCH (08:08)
[2018-12-26] MEDS: LOSARTAN 50MG TABLET PO SCH (08:08)
[2018-12-26] MEDS: FLUOXETINE HCL 20 MG CAPSULE PO SCH (08:09)
[2018-12-26] MEDS: DOCUSATE 100 MG CAPSULE PO SCH (08:09)
[2018-12-26] MEDS: SPIRONOLACTONE 25 MG TABLET PO SCH (08:09)
[2018-12-26] MEDS: CARVEDILOL 6.25 MG TABLET PO SCH (08:09)
[2018-12-26] MEDS: SODIUM CHLORIDE FLUSH 10ML SYR IVF SCH (08:11)
[2018-12-26] MEDS: OMEPRAZOLE 20 MG CAPSULE.DR PO SCH (08:11)
[2018-12-26] MEDS: ENOXAPARIN 40 MG/0.4 ML SQ SCH (08:11)
[2018-12-26] MEDS ORDERED: GUAI200T3 PO (08:14)
[2018-12-26] MEDS ORDERED: LOPE2CAP PO (08:14)
[2018-12-26] MEDS ORDERED: ENOX40SY4 SQ (08:14)
[2018-12-26] MEDS ORDERED: ACET325T26 PO (08:14)
[2018-12-26] MEDS ORDERED: IBUP-1840 PO (08:17)
[2018-12-26] MEDS: ACETAMINOPHEN 325 MG TABLET PO PRN (14:46)
[2018-12-26 14:47] VITALS: BP 118/69
== END 2018-12-26 16:40 | disposition home health service (06) | DRG 226 ==
LOC: 5SO 05:28 → CCU 07:25 → 5SO 12-22 18:33
PROVIDERS: ADMIT Thoracic Surgery (Cardiothoracic Vascular Surgery); ATTEND Internal Medicine
PROC: 02H63KZ Insertion of Defibrillator Lead into Right Atrium, Percutaneous Approach (ICD-10-PCS; 2018-12-21)
PROC: 02HN0KZ Insertion of Defibrillator Lead into Pericardium, Open Approach (ICD-10-PCS; 2018-12-21)
PROC: 02583ZZ Destruction of Conduction Mechanism, Percutaneous Approach (ICD-10-PCS; 2018-12-21)
PROC: 0JPT0PZ Removal of Cardiac Rhythm Related Device from Trunk Subcutaneous Tissue and Fascia, Open Approach (ICD-10-PCS; 2018-12-21)
PROC: 02PA3MZ Removal of Cardiac Lead from Heart, Percutaneous Approach (ICD-10-PCS; 2018-12-21)
PROC: 02K83ZZ Map Conduction Mechanism, Percutaneous Approach (ICD-10-PCS; 2018-12-21)
PROC: 4A0234Z Measurement of Cardiac Electrical Activity, Percutaneous Approach (ICD-10-PCS; 2018-12-21)
PROC: 5A1935Z Respiratory Ventilation, Less than 24 Consecutive Hours (ICD-10-PCS; 2018-12-21)
PROC: 0BH17EZ Insertion of Endotracheal Airway into Trachea, Via Natural or Artificial Opening (ICD-10-PCS; 2018-12-21)
PROC: 0JH609Z Insertion of Cardiac Resynchronization Defibrillator Pulse Generator into Chest Subcutaneous Tissue and Fascia, Open Approach (ICD-10-PCS; principal; 2018-12-21 07:15)
DX: T82.120A Displacement of cardiac electrode, initial encounter (principal); N17.0 Acute kidney failure with tubular necrosis; I47.2 Ventricular tachycardia; E46 Unspecified protein-calorie malnutrition; I50.22 Chronic systolic (congestive) heart failure; I44.2 Atrioventricular block, complete; I50.82 Biventricular heart failure; I49.5 Sick sinus syndrome; D72.829 Elevated white blood cell count, unspecified; E83.39 Other disorders of phosphorus metabolism; Y83.8 Other surgical procedures as the cause of abnormal reaction of the patient, or of later complication, without mention of misadventure at the time of the procedure; E03.9 Hypothyroidism, unspecified; E78.5 Hyperlipidemia, unspecified; Z68.25 Body mass index [BMI] 25.0-25.9, adult; I11.0 Hypertensive heart disease with heart failure; I25.5 Ischemic cardiomyopathy; I44.7 Left bundle-branch block, unspecified; K59.03 Drug induced constipation; T40.605A Adverse effect of unspecified narcotics, initial encounter; Z82.49 Family history of ischemic heart disease and other diseases of the circulatory system; Z86.79 Personal history of other diseases of the circulatory system; Z87.891 Personal history of nicotine dependence; Z95.810 Presence of automatic (implantable) cardiac defibrillator; Z80.1 Family history of malignant neoplasm of trachea, bronchus and lung; Y92.89 Other specified places as the place of occurrence of the external cause
CPT/HCPCS: 33216; 33244; 33264; 36415; 36600; 71045; 71046; 80048; 80053; 81003; 82040; 82800; 82803; 82810; 82947; 82962; 83036; 83735; 84100; 84132; 85014; 85018; 85025; 85049; 85610; 85730; 86850; 86900; 86923; 87081; 93005; 94002; C1769; C1779; C1785; C1892; C1896; G0378; J0697; J1100; J1650; J1885; J2250; J2405; J2704; J3010; J3370; C1760; C1778; C1882; C1898; J0330; J0360; J1815; J2270; J3475; J7040